=== PATIENT | female | born 1995 | race Caucasian/White ===

== ENCOUNTER → 2017-04-15 | Outpatient (CLI) | payer OTHER ==
[~2017-04-15] MED LIST: AMOX500T PO; FEXO180 PO; FLON0.053; ONDA4 PO
== END ==
LOC: HPND 10:02
PROVIDERS: ATTEND Obstetrics & Gynecology
DX: O99.322 Drug use complicating pregnancy, second trimester (principal); O35.1XX0 Maternal care for (suspected) chromosomal abnormality in fetus, not applicable or unspecified; O44.22 Partial placenta previa NOS or without hemorrhage, second trimester; Z3A.25 25 weeks gestation of pregnancy
CPT/HCPCS: 76811; 76825; 76827; 93325